=== PATIENT | male | born 1965 ===

== ENCOUNTER → 2020-08-18 10:46 | Outpatient (BNVA) | payer OTHER, SELFPAY | PROVIDERS: PCP Internal Medicine; Visit Provider Urology | DX: Z76.89 Persons encountering health services in other specified circumstances (principal) ==

== ENCOUNTER → 2020-08-21 09:57 | Outpatient (BNVA) | payer OTHER, SELFPAY | PROVIDERS: PCP Internal Medicine; Visit Provider Urology | DX: Z76.89 Persons encountering health services in other specified circumstances (principal) ==

== ENCOUNTER → 2020-08-26 15:37 | Outpatient (BNVA) | payer OTHER, SELFPAY | PROVIDERS: PCP Internal Medicine; Visit Provider Urology | DX: N20.0 Calculus of kidney (principal) | CPT/HCPCS: 81002 ==

== ENCOUNTER 2020-08-31 07:17 | Day surgery (SDC) | payer OTHER, SELFPAY ==
[2020-08-31] VITALS (15 sets, daily range): BP systolic 143–167; BP diastolic 92–108; PULSE 91–103; RESP 16–20; TEMP 36.1–36.3; O2SAT 94–100; BMI 29.4
--- NOTE | 2020-08-31 07:13 | FL_ITS ---
EXAMINATION: XR FLUOROSCOPY WITH IMAGES CLINICAL INFORMATION: Stent placement COMPARISON: Previous exam November 2016 TECHNIQUE: Fluoroscopy performed by Dr. Efra Waite. Fluoroscopy time: 1 minutes DAP: 18 mGy Images: 5 FINDINGS: Initial image demonstrates opacification of the right renal collecting system and proximal ureter and right internal ureteral stent placement. Final image demonstrates left internal ureteral stent projecting over the left kidney and upper ureter. FL/FL guidance in OR IMPRESSION: Fluoroscopy guidance for bilateral ureteral stent placement.
[2020-08-31] MEDS: levoFLOXacin 500 MG TABLET PO (08:39)
[2020-08-31] MEDS: Gentamicin Sulfate/NaCl 80 MG/100 ML PIGGYBACK 100 MG IV (08:39)
--- NOTE | 2020-08-31 09:57 | P.CONAN_ITS ---
[facility] Family History Family History Father CVD (cardiovascular disease) Mother No problems noted. Surgical History Surgical History History of cystoscopy History of lithotripsy Social History Social History Smoking Status: Never smoker Have you been hit, kicked, punched, or otherwise hurt by someone within the past year? If so, by whom?: No Advance Directives: No Advance Directives Information Provided: No (unknown) Advance Directives on File: No Meds Allergies Allergy/AdvReac Type Severity Reaction Status Date / Time Penicillins Allergy Rash Verified 07/24/20 15:33 Home Medications Medication Instructions Recorded Confirmed Type allopurinol 100 mg tablet 100 mg PO DAILY 07/21/20 08/26/20 History alprazolam 0.25 mg tablet 0.25 mg PO TID 07/21/20 08/26/20 History doxazosin 8 mg tablet 8 mg PO DAILY 07/21/20 08/26/20 History escitalopram oxalate 20 mg tablet 20 mg PO DAILY 07/21/20 08/26/20 History lamotrigine 100 mg tablet 100 mg PO DAILY 07/21/20 08/26/20 History nortriptyline 50 mg capsule 50 mg PO DAILY 07/21/20 08/26/20 History oxycodone-acetaminophen 5 mg-325 1 tab PO Q8H PRN 07/21/20 08/26/20 History mg tablet pyridoxine (vitamin B6) 50 mg 50 mg PO DAILY 07/21/20 08/26/20 History tablet tamsulosin 0.4 mg capsule 0.4 mg PO DAILY 07/21/20 08/26/20 History buspirone 1 tab PO TID 08/31/20 08/31/20 History Exam Exam Date and Time: August 31, 2020956 Height,Weight and Vital Signs: Height 5 ft 7 in Weight 85.275 kg Last Vital Signs Temp 97 F 08/31/20 08:26 Pulse 98 08/31/20 08:26 Resp 18 08/31/20 08:26 BP 158/96 H 08/31/20 08:26 Pulse Ox 100 08/31/20 08:26 Airway Mallampati Class: II TM Dist: >3cm Neck ROM: Full Assessment and Plan Assessment Anesthesia Assessment: Anesthesia Plan Discussed and Chart Reviewed Final Anesthetic Review NPO: Yes ASA Class: II Final Preanesthetic Review: No Changes in Pt Med Stat, Meds/Allgs Chart Reviewed, Consent Obtained/Reviewed and Anes Risks/Benef Reviewed Patient Risk: Low Procedure Risk: Low Assessment/Block/Sedation in SS: Assess/Block/Sedation-SS Anesthetic Plan Anesthetic Plan: GA Disposition: Standard PACU
--- NOTE | 2020-08-31 12:01 | PM.OP ---
Brief Operative Note Date of procedure: 08/31/20 Pre-op diagnosis: bilateral renal nephrolithiasis Post-op diagnosis: same Procedure: 1. right retrograde 2. dilatation right ureteric orifice under fluoroscopy 3. right ureteroscopy with laser lithotripsy 0 4 right stent placement 5. left retrograde 6. dilatation left ureteric orifice under fluoroscopy 7. left ureteroscopy with laser lithotripsy 8. left stent placement Implants: bilateral 7 [place] 24 cm double-J ureteric catheter Surgeon: Efra Waite MD Anesthesia: GLMA Estimated blood loss (mL): 0 Pathology: other ( stones) Condition: stable Disposition: same day
--- NOTE | 2020-08-31 12:05 | W.PM.OPN ---
Operative Note Operative Note Narrative: PreOperative Diagnosis: bilateral renal nephrolithiasis Post Operative Diagnosis: bilateral renal nephrolithiasis left staghorn with significant stone Procedure: 1. Bilateral retrogrades 2. bilateral dilatation distal ureteric orifice under fluoroscopy 3. bilateral ureteroscopy with laser lithotripsy of stones. Modifier 22 on right side prolonged greater than 100% typical time 4. bilateral stent placement Surgeon: Dr Efra Waite Anesthesia: general Indications for procedure: 54-year-old male. Bilateral stones. 2.5 cm stone on the right lower pole. 1 cm stone on the left pole. Discussed PCNL versus ESWL versus ureteroscopy. Is willing to undergo ureteroscopy. Understands this may be a staged procedure in secondary procedures will be needed necessary depending on postprocedure findings. Procedure: After informed consent was verified patient was brought to the operating room placed in a supine position. Anesthesia was administered per protocol. Patient was placed in modified dorsal lithotomy position and prepped and draped in sterile fashion. Safety pause time-out was performed. Antibiotics have been given. Twenty-one Prydeinig cystoscope inserted per urethra. He does have a large prostate. Ureter noted on right side. This was cannulated and retrograde examination performed. Filling defect in lower pole. Sensor guidewire placed to the level of renal pelvis. cystoscope removed. The distal ureteric orifice was dilated under fluoroscopic guidance. Ureteric access sheath was placed. Flexible ureteroscope was then placed up to the level renal pelvis. The renal pelvis was examined. There was a number of findings on the right side. 1. staghorn lower pole calculus in 2 posterior calyx. 2. due to prior procedures that was an excluded calyx containing a large number of stones. Using the 200 micron laser fiber approximately 1 hour spent in case with stone try to break this into small pieces. Approximately 50% was able to be broken. The other piece was not accessible to the flexible ureteral scope. Once this was complete mass since ago by was placed. The sheath was removed and a 7 Prydeinig by 24 cm stent was placed. Similar procedure was repeated on the left side. Retrograde was performed. Access sheath was placed. Flexible ureteroscopy was performed. Two stones were found 1 in the upper pole 1 in the lower pole. In this occasion both were accessible to the flexible ureteroscope and stones were broken into small pieces with stone box cutting. When this was completed a Sensor guidewire was placed. And a 7 Prydeinig by 24 cm stent was placed. He tolerated procedure well was extubated in operating room and transferred in stable condition to the recovery area. Pathology: Stones Drains: Bilateral 7 Prydeinig by 24 cm double-J ureteric catheters
[2020-08-31] MEDS: fentaNYL citrate/PF 100 MCG/2 ML VIAL 50 MCG IVPUSH (12:35)
[2020-08-31] MEDS: ondansetron HCL 4 MG/2 ML VIAL IVPUSH (12:48)
[2020-08-31] MEDS: Phenazopyridine HCL 100 MG TABLET PO (13:18)
[2020-08-31] MEDS: Acetaminophen 325 MG TABLET 650 MG PO (14:20)
[2020-08-31] MEDS: oxyCODONE HCl Immed Release 5 MG TABLET PO (14:21)
[2020-09-03 23:41] LABS: Stone Source KIDNEY STONE
== END 2020-08-31 16:14 | disposition home or self-care (01) ==
PROVIDERS: PCP Internal Medicine; Visit Provider Urology
PROC: (CPT 52356; principal; 2020-08-31 09:00)
DX: N20.0 Calculus of kidney (principal); Z87.442 Personal history of urinary calculi; Z79.899 Other long term (current) drug therapy; Z88.0 Allergy status to penicillin
CPT/HCPCS: 52356; 82365; 88300; C1769; C2617; J1100; J1580; J1885; J2405; J3010; Q9967

== ENCOUNTER → 2020-09-10 15:01 | Outpatient (BNVA) | payer OTHER, SELFPAY | PROVIDERS: PCP Internal Medicine; Visit Provider Urology | DX: Z48.816 Encounter for surgical aftercare following surgery on the genitourinary system (principal); Z96.0 Presence of urogenital implants; Z87.442 Personal history of urinary calculi | CPT/HCPCS: 52000; 52310 ==

== ENCOUNTER → 2020-11-18 10:16 | Outpatient (BNVA) | payer OTHER, SELFPAY | PROVIDERS: PCP Internal Medicine; Visit Provider Urology | DX: Z76.89 Persons encountering health services in other specified circumstances (principal) ==

== ENCOUNTER → 2021-05-25 08:19 | Outpatient (BNVA) | payer OTHER, SELFPAY | PROVIDERS: PCP Internal Medicine; Visit Provider Urology ==

== ENCOUNTER → 2021-11-23 11:01 | Outpatient (BNVA) | payer OTHER, SELFPAY | PROVIDERS: PCP Internal Medicine; Visit Provider Urology ==

== ENCOUNTER 2022-06-10 09:48 | Outpatient (AMB) | payer OTHER, SELFPAY ==
--- NOTE | 2022-06-09 12:07 | A.OFFVIS_ITS ---
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 He is a patient of Dr. Willis. He is seen for following urologic conditions - nephrolithiasis Telemedicine Evaluation 15 min Consultation Doxim[employer] [place] Video attempted Reviewed imaging findings Encouraged fluid intake with lemon, vitamin-B and allopurinol Review in 6 months with imaging Nephrolithiasis/Urolithiasis: They are here for further evaluation of nephrolithiasis. They present for evaluation of back pain none flank pain none abdominal pain none Urolithiasis was diagnosed Many years . The patient previously had kidney stones whose composition 2015 , calcium oxalate - dihydrate 95%, - 2020 calcium oxalate dihydrate Laboratory investigations include no recent labs. 24 Hour urine evaluation 11/08 , Low Urin e volume < 2.0 liters, High oxalate > 30mg, Low calcium < 200, High Citrate - discussion - increase fluid volume by 32 ounces. Discussed oxalate restriction. Add Citracal with evening meal 05/08 , Low Urine volume < 2.0 liters, Joseph borderline, , Low Oxalate < 30, Low citrate < 400 - discussed add 16 oz water, lemon juice vs cit-K, Vit B6 and allopurinol 06/09 , Low Urine volume < 2.0 liters, High oxalate > 30mg, Low calcium < 200, High Citrate - oxalate advice given 07/11 low volume, high oxalate. Prior treatment(s) include ESWL 1994, 1996, and October 2006 - left side, July 2012. PCNL right side August 2007 - 12/09 - left USR and ureteric stone. - 09/11 bilateral USR with stones Prior imaging includes an x-ray May 2015. Multifocal right lower pole nephrolithiasis measuring up to 2.2 cm Prostatic calcification. Stable stones March 2016 - , a KUB x-ray, showing radiodense stone(s), on the right, 5- 10 mm Jun 2016 , a CT multiple stones in the right lower pole, multiple stones in left lower pole - new Sep 2016 , a renal ultrasound bilateral stones - notice more in right than left - multiple small stones December 2016 , a KUB x-ray - less stones on the left, still present on right 06/09 , a KUB x-ray stones on right - 07/12 KUB - right cluster 2.5cm, left 1.5cm - 11/12 KUB right cluster 1 cm, left 0.5 - 75% reduction in stone volume bilateral 06/12 - renal ultrasound reports 3 - 4 mm stones on right and 1.2 cm stone on left - 11/13 KUB with right cluster 1 cm, no stone reported on left UA today shows >7.0. Current therapeutic plan will be - continue imaging surveillance [facility] Surgical History History of lithotripsy History of cystoscopy Family History Father CVD (cardiovascular disease) Mother No problems noted. Social History Patient Tobacco Use Status: Former Tobacco user Quit Date: 20 years ago Review of Systems Const All systems reviewed & are unremarkable except as noted in HPI and below Reports no additional complaints Resp Reports no additional complaints GI Reports no additional complaints Reports as per HPI Musc Reports no additional complaints Physical Exam Telemedicine evaluation Appropriate responses Regular breathing rate and rhythm HEENT Head: Yes normal to inspection Ears: hearing grossly normal bilaterally Eyes General: appearance normal, both eyes and all related structures Neck Neck: Yes normal visual inspection Chest Chest palpation & inspection: normal inspection of the chest Resp Effort & Inspection: normal respiratory effort and able to speak in complete sentences Assessment & Plan Assessment & Plan (1) Nephrolithiasis: Code(s): N20.0 - Calculus of kidney (2) Complicated urinary tract infection: Code(s): N39.0 - Urinary tract infection, site not specified Plan Continue surveillance Orders: Orders XR KUB 6 Months N20.0 - Calculus of kidney Medications: New prednisone 20 mg PO DAILY 3 tabs 0RF 3 days N20.0 - Calculus of kidney, 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 No major barriers to patient understanding were identified. An opportunity to ask questions regarding the treatment plan was provided. All questions were answered. The patient expressed understanding and agreement with the above treatment plan. The patient is aware they should contact our office by phone for worsening of their current condition or the appearance of new urologic symptoms. Compliance is encouraged with any medications and followup testing that is ordered. It is a privilege to participate in the urologic care of your patient. If you have any questions or concerns regarding treatment for the above conditions, or other urologic issues, please do not hesitate to contact me. The office telephone contact is [phone]. This note is constructed using voice recognition software. While every effort has been made to ensure accuracy service station operator errors may have been included. Yours sincerely, Dr Efra Waite MD, [facility] - Urology Providers of Expert, Compassionate Care for the Genitourinary System Telehealth Telehealth Location of provider rendering services: practice address Location of patient: address on file Patient Identification confirmed using: Name, : Yes Telehealth method: video Patient verbally consented to treatment: Yes Patient verbally consented to billing insurance company: Yes Patient informed of any privacy concerns related to visit: Yes Coding Level of Care Code Tele Est Pt Level 3 (70690) Diagnoses Nephrolithiasis N20.0 Complicated urinary tract infection N39.0
== END 2022-06-10 11:56 | disposition home or self-care (01) ==
LOC: HO.HUSH 09:48
PROVIDERS: PCP Internal Medicine; Visit Provider Urology
DX: N20.0 Calculus of kidney (principal); N39.0 Urinary tract infection, site not specified
CPT/HCPCS: 99499

== ENCOUNTER 2022-09-26 05:48 | Day surgery (SDC) | payer OTHER, SELFPAY ==
--- NOTE | 2022-09-23 09:32 | HO.ANESPROP2 ---
Documented by User: Cinthya Rowe NP 09/23/22 09:33 HPI - Anesthesia Eval Consult details Narrative: 56yo M for Left Cystoscopy, Ureteroroscopy, Retro, Laser,poss stent s/p same with GA-LMA 4 PMFSH Active Problems Active Problems: All Active Problems (Updated 08/21/20 @ 16:17 by Efra Waite MD) Nephrolithiasis (Acute) Complicated urinary tract infection (Acute) Family History Family History Father CVD (cardiovascular disease) Mother No problems noted. Surgical History Surgical History History of cystoscopy History of lithotripsy Social History Social History Patient Tobacco Use Status: Former Tobacco user Quit Date: 20 years ago Use of substances other than those prescribed or required for medical reasons: No Are you DNR?: No Advance Directives: No Advance Directives Information Provided: Yes Meds Allergies Allergy/AdvReac Type Severity Reaction Status Date / Time Penicillins Allergy Rash Verified 06/09/22 12:08 Home Medications Medication Instructions Recorded Confirmed Last Taken Type allopurinol 100 mg tablet 100 mg PO DAILY 07/21/20 08/26/20 Unknown History alprazolam 0.25 mg tablet (Xanax) 0.25 mg PO TID 07/21/20 08/26/20 Unknown History escitalopram oxalate 20 mg tablet 20 mg PO DAILY 07/21/20 08/26/20 08/31/20 History (Lexapro) lamotrigine 100 mg tablet 100 mg PO DAILY 07/21/20 08/26/20 Unknown History (Lamictal) nortriptyline 50 mg capsule 50 mg PO DAILY 07/21/20 08/26/20 Unknown History buspirone 5 mg tablet 1 tab PO TID 08/31/20 08/31/20 08/31/20 History lamotrigine 150 mg tablet 150 mg PO DAILY 05/25/21 Unknown History Exam Exam Date and Time: September 23, 2022 0932 Assessment and Plan Assessment Anesthesia Assessment: Chart Reviewed Documented by User: Saida Currie MD 09/26/22 07:30 [facility] Family History Family History Father CVD (cardiovascular disease) Mother No problems noted. Family history of problems with anesthesia: No Surgical History Surgical History History of cystoscopy History of lithotripsy History of Problems with Anesthesia: No Social History Social History Patient Tobacco Use Status: Former Tobacco user Quit Date: 20 years ago Use of substances other than those prescribed or required for medical reasons: No Are you DNR?: No Advance Directives: No Advance Directives Information Provided: Yes Meds Allergies Allergy/AdvReac Type Severity Reaction Status Date / Time Penicillins Allergy Rash Verified 06/09/22 12:08 Home Medications Medication Instructions Recorded Confirmed Last Taken Type allopurinol 100 mg tablet 100 mg PO DAILY 07/21/20 08/26/20 Unknown History alprazolam 0.25 mg tablet (Xanax) 0.25 mg PO TID 07/21/20 08/26/20 Unknown History escitalopram oxalate 20 mg tablet 20 mg PO DAILY 07/21/20 08/26/20 08/31/20 History (Lexapro) lamotrigine 100 mg tablet 100 mg PO DAILY 07/21/20 08/26/20 Unknown History (Lamictal) nortriptyline 50 mg capsule 50 mg PO DAILY 07/21/20 08/26/20 Unknown History buspirone 5 mg tablet 1 tab PO TID 08/31/20 08/31/20 08/31/20 History lamotrigine 150 mg tablet 150 mg PO DAILY 05/25/21 Unknown History Exam Airway Mallampati Class: II TM Dist: >3cm Neck ROM: Full Loose/Missing/Broken Teeth: No Heart: rrr Lungs: cta Assessment and Plan Assessment Anesthesia Assessment: Anesthesia Plan Discussed Final Anesthetic Review Family History of Problems with Anesthesia: No History of Problems with Anesthesia: No NPO: Yes ASA Class: II Final Preanesthetic Review: No Changes in Pt Med Stat Patient Risk: Low Procedure Risk: Low Anesthetic Plan Anesthetic Plan: GA Disposition: Standard PACU
--- NOTE | ~2022-09-26 | FL_ITS ---
EXAMINATION: XR FLUOROSCOPY WITH IMAGES CLINICAL INFORMATION: Urinary tract calculi COMPARISON: Fluoroscopic spot views 08/31/2020 TECHNIQUE: Fluoroscopy Supervised By: Dr. Efra Waite. Fluoroscopy Time: 34 seconds. Cumulative Dose: 11.82 mGy. Images: 3. FINDINGS: On one spot view, there is contrast in the mid to lower left ureter. The opacified area shows no filling defect or stricture. The final images demonstrate a left ureteral stent in position. There is probable calcifications in the prostate. FL/FL guidance in OR IMPRESSION: Fluoroscopy for urologic procedures.
[2022-09-26 06:21] VITALS: BP 144/87; PULSE 90; RESP 18; TEMP 36.2; O2SAT 99; BMI 29.0
[2022-09-26 06:30] VITALS: BMI 29.0
[2022-09-26] MEDS: Lactated Ringers 1,000 ML 100 ML IVCONT (06:40)
--- NOTE | 2022-09-26 07:37 | MHC.SHP ---
Pre-Procedural Eval Section A Date of Service: 09/26/22 The patient is an INPATIENT: No Changes since office visit: No Cold of Flu in the past 2 weeks, No New Medical Problems, No Changes in Medication and No Patient answered all questions The History & Physical has been completed within 30 days and I have reviewed it.: No Section B Chief Complaint: Calculus of kidney Details of Present Illness: Recurrent pain left side Long standing stone former Imaging with left stone Plan for left sided procedure Relevant Family History (Specify if Yes): No Relevant Social History: None Present Medications: see Short Stay Collaborative assessment Medical History: Significant History History of Previous Operations: Relevant previous surgery/procedure and date(s) Allergies: Allergies Allergy/AdvReac Type Severity Reaction Status Date / Time Penicillins Allergy Rash Verified 06/09/22 12:08 Review of Systems Sugical H&P ROS: Negative: Constitution, Cardiovascular, Respiratory, Neurological, Psychiatric, Hem-Onc, Allergic/Immunologic, Gastrointestinal, Genitourinary, Musculoskeletal, Integumentary, Endocrine and Eyes/Ears/Nose/Throat Exam Surgical H&P Exam: Normal: HEENT, Normal: Heart, Normal: Lungs, Normal: Extremities, Normal: Abdomen, Normal: Skin and Normal: Neurological Plan Diagnosis/Plan: Unchanged (Cysto, retro, USR, laser, stent) I have reviewed the history and physical and performed a pertinent physical examination on my patient. No changes have occurred unless specified.
[2022-09-26 08:30] VITALS: BP 130/80; PULSE 92; RESP 18; TEMP 36.8; O2SAT 96
[2022-09-26 08:35] VITALS: BP 134/85; PULSE 86; RESP 16; O2SAT 96
--- NOTE | 2022-09-26 08:36 | P.OP_ITS ---
Operative Note Operative Note Date of Service: 09/26/22 Narrative: PreOperative Diagnosis: left mid ureteric stone Post Operative Diagnosis: bladder stones, left mid ureteric stone Procedure: - cystoscopy, laser of bladder stone - left retrograde - left dilatation of ureteric orifice under fluoroscopy - left ureteroscopy, laser lithotripsy - left stent placement Surgeon: Dr Efra Waite Anesthesia: General Indications for procedure: pain on left side. Prior kidney stone former. KUB showed stone on right kidney but did not visualize anything on left kidney. Due to persistence and recurrence of symptoms recommend ureteroscopy on left side. Procedure: After informed consent was verified patient was brought to the operating placed in supine position. Anesthesia was administered per protocol. Patient was placed in modified dorsal lithotomy position and prepped and draped in a sterile fashion. Safety pause time-out and side of surgery confirmed. Antibiotics confirmed. A 22 Citizen [place] cystoscope was inserted per urethra. Bladder was normal in its entirety. Both ureteric orifices were in normal position. Two bladder stones were found within the bladder. First bladder stone was able to be easily removed through the cystoscope. The 2nd bladder stone was broken into small pieces using the 372 micron holmium fiber and stone settings. The Left ureteric orifice was cannulated and a retrograde examination was performed. filling defect was present in the mid left ureter . A Sensor guidewire was placed up to the level of the renal pelvis under fluoroscopy. The rigid cystoscope was removed. A [place] dilator was placed over the Sensor guidewire and used to dilate the ureteric orifice under fluoroscopy. The dilator was removed. The semi rigid ureteral scope was placed alongside the Sensor guidewire. An obstructing stone was found in the mid left ureter. Using the same holmium laser fiber the stone was broken into small pieces and dispersed. The proximal ureter was then examined up to the level renal pelvis. No further stones were seen. The area where the stone was present had edema with some degree of narrowing. Due to the edema decision was made to place stent. A 6 [place] by 26 cm double-J stent was placed into the renal pelvis and bladder under a combination of fluoroscopy and direct visualization. The string was left on the posterior of the stent to allow removal as outpatient The bladder was emptied. The patient tolerated the procedure well and was extubated in the operating room, and transferred in stable condition to the recovery area. Pathology: stones Drains: stent as described above
[2022-09-26 08:40] VITALS: BP 124/88; PULSE 94; RESP 16; O2SAT 96
[2022-09-26 08:45] VITALS: BP 134/90; PULSE 87; RESP 16; O2SAT 99
[2022-09-26] MEDS: Acetaminophen 325 MG TABLET 650 MG PO (08:55)
[2022-09-26] MEDS: Phenazopyridine HCL 100 MG TABLET PO (08:56)
[2022-09-26 09:00] VITALS: BP 140/92; PULSE 88; RESP 16; TEMP 36.3; O2SAT 99
== END 2022-09-26 09:53 | disposition home or self-care (01) ==
PROVIDERS: PCP Internal Medicine; Visit Provider Urology
PROC: (CPT 52356; principal; 2022-09-26 07:30)
DX: N21.0 Calculus in bladder (principal); N20.1 Calculus of ureter; Z87.442 Personal history of urinary calculi; Z88.0 Allergy status to penicillin; Z87.891 Personal history of nicotine dependence
CPT/HCPCS: 52356; 52317; 88300; C1758; C1769; C2617; J1956; J2250; J2405; J3010; Q9967

== ENCOUNTER → 2022-12-16 08:37 | Outpatient (BNVA) | payer OTHER, SELFPAY | PROVIDERS: PCP Internal Medicine; Visit Provider Urology | DX: Z13.89 Encounter for screening for other disorder (principal) ==

== ENCOUNTER 2023-09-01 13:57 | Outpatient (AMB) | payer OTHER, SELFPAY ==
--- NOTE | 2023-09-01 14:03 | MHC.OFFVIS ---
Intake Intake Visit Reasons: 6m follow up/XR-KUB(set) Intake Note: Patient is Present for Follow Up xray Urology Medication: Doxazosin, Vitamin B6, Tamsulosin Antibiotic Allergies: Penicillins Blood Thinners: Penicillins Allergies Penicillins Allergy (Verified 09/01/23 14:07) Rash Medication List - Last Reconciled 09/01/23 by Efra Waite MD allopurinol 100 mg PO DAILY 90 days alprazolam (Xanax) 0.25 mg PO TID buspirone 10 mg PO TID doxazosin 8 mg PO BEDTIME 90 days escitalopram oxalate (Lexapro) 20 mg PO DAILY lamotrigine 150 mg PO DAILY naproxen 500 mg PO BID PRN 7 days nortriptyline 50 mg PO DAILY pyridoxine (vitamin B6) (Vitamin B-6) 50 mg PO DAILY 90 days HPI HPI Comments History of Present Illness Details Raghu is a very pleasant male. He is a patient of Dr. Willis. He is seen for following urologic conditions - nephrolithiasis Six month review Imaging with persistent stone cluster right side Reviewed imaging findings Encouraged fluid intake with lemon, vitamin-B 50mg Yearly follow-up Nephrolithiasis/Urolithiasis: They are here for further evaluation of nephrolithiasis. Urolithiasis was diagnosed Many years . The patient previously had kidney stones whose composition w 2015 , calcium oxalate - dihydrate 95%, - 2020 calcium oxalate dihydrate - 2022 calcium dihydrate Laboratory investigations include no recent labs. 24 Hour urine evaluation 11/08 , Low Urine volume < 2.0 liters, High oxalate > 30mg, Low calcium < 200, High Citrate - discussion - increase fluid volume by 32 ounces. Discussed oxalate restriction. Add Citracal with evening meal 05/08 , Low Urine volume < 2.0 liters, Joseph borderline, , Low Oxalate < 30, Low citrate < 400 - discussed add 16 oz water, lemon juice vs cit-K, Vit B6 and allopurinol 06/09 , Low Urine volume < 2.0 liters, High oxalate > 30mg, Low calcium < 200, High Citrate - oxalate advice given 07/11 low volume, high oxalate. Prior treatment(s) include ESWL 1994, 1996, and October 2006 - left side, July 2012. PCNL right side August 2007 - 12/09 - left USR and ureteric stone. - 09/11 bilateral USR with stones - 10/13 USR right side Prior imaging includes an x-ray May 2015. Multifocal right lower pole nephrolithiasis measuring up to 2.2 cm Prostatic calcification. Stable stones March 2016 - , a KUB x-ray, showing radiodense stone(s), on the right, 5-10 mm Jun 2016 , a CT multiple stones in the right lower pole, multiple stones in left lower pole - new Sep 2016 , a renal ultrasound bilateral stones - notice more in right than left - multiple small stones December 2016 , a KUB x-ray - less stones on the left, still present on right 06/09 , a KUB x-ray stones on right - 07/12 KUB - right cluster 2.5cm, left 1.5cm - 11/12 KUB right cluster 1 cm, left 0.5 - 75% reduction in stone volume bilateral 06/12 - renal ultrasound reports 3 - 4 mm stones on right and 1.2 cm stone on left - 11/13 KUB with right cluster 1 cm, no stone reported on left, 12/15 US with right cluster of stones, left cyst - 08/14 kv with persistent right stone cluster small UA today shows >7.0. Current therapeutic plan will be - continue imaging surveillance [facility] Surgical History History of lithotripsy History of cystoscopy Family History Father CVD (cardiovascular disease) Mother No problems noted. Social History Patient Tobacco Use Status: Former Tobacco user Quit Date: 20 years ago Review of Systems Const Denies chills and Denies fever(s) Card Reports no additional complaints and Denies syncope Resp Denies cough GI Denies abdominal pain and Denies heartburn Reports as per HPI and Denies change in libido Neuro Denies syncope Psych Denies change in libido Endo Denies change in libido Physical Exam Const General: cooperative, healthy appearing, comfortable and no acute distress Orientation/consciousness: patient oriented x3 HEENT Face and sinus: Yes normal facial exam Mouth: moist mucous membranes Neck Neck: Yes normal visual inspection, Yes full ROM and Yes trachea midline Chest Chest palpation & inspection: normal inspection of the chest Resp Effort & Inspection: normal respiratory effort, able to speak in complete sentences and no respiratory distress GI Inspection: Yes normal to inspection Back/Spine/Pelvis Cervical Spine: normal cervical lordosis Thoracic/Lumbar Spine: thoracic and lumbar spine normal to inspection Skin General skin exam: no rashes or lesions noted Neuro General: patient oriented x3, gait normal, tone normal and moves all extremities Extrem General: Yes normal to inspection and Yes capillary refill normal Assessment & Plan Assessment & Plan (1) Nephrolithiasis: Code(s): N20.0 - Calculus of kidney (2) Complicated urinary tract infection: Code(s): N39.0 - Urinary tract infection, site not specified Plan Twelve month follow-up Orders: Orders US renal BI 364 Days N20.0 - Calculus of kidney Patient Instructions: Imaging studies, laboratory and physical exam results were discussed and reviewed in detail. No major barriers to patient understanding were identified. An opportunity to ask questions regarding the treatment plan was provided. All questions were answered. The patient expressed understanding and agreement with the above treatment plan. The patient is aware they should contact our office by phone for worsening of their current condition or the appearance of new urologic symptoms. Compliance is encouraged with any medications and followup testing that is ordered. It is a privilege to participate in the urologic care of your patient. If you have any questions or concerns regarding treatment for the above conditions, or other urologic issues, please do not hesitate to contact me. The office telephone contact is [phone]. This note is constructed using voice recognition software. While every effort has been made to ensure accuracy assembler corncob pipes errors may have been included. Yours sincerely, Dr Efra Waite MD, [facility] - Urology Providers of Expert, Compassionate Care for the Genitourinary System Coding Level of Care Code Est Pt Level 3 (01829) Diagnoses Nephrolithiasis N20.0 Complicated urinary tract infection N39.0
== END 2023-09-01 14:26 | disposition home or self-care (01) ==
PROVIDERS: Visit Provider Urology
DX: N20.0 Calculus of kidney (principal); N39.0 Urinary tract infection, site not specified
CPT/HCPCS: 99213

== ENCOUNTER → 2023-09-01 13:57 | Outpatient (BNVA) | payer OTHER, SELFPAY | PROVIDERS: Visit Provider Urology ==

== ENCOUNTER 2024-09-05 11:00 | Outpatient (AMB) | payer OTHER, SELFPAY ==
--- NOTE | 2024-09-05 11:03 | A.OFFVIS_ITS ---
Intake Visit Reasons: ALS diagnosis/follow up Intake Note: Patient is present for ALS DIAGNOSIS F/U Urology Medication:ALLOPURINOL,DOXAZOSIN,VITAMIN B6,NAPROXEN Antibiotic Allergy:PENICILLIN Blood Thinner:NONE Director Post Required: No Allergies Penicillins Allergy (Verified 09/05/24 11:05) Rash HPI Comments Details: Raghu is a very pleasant male. He is a patient of Dr. Willis. He is seen for following urologic conditions - nephrolithiasis - lower urinary tract symptoms Progressive ALS over past year Accompanied by brother Here for discussion regarding urinary management Plan on trying to optimize alpha-faizan May need Palma catheter He may call in 2 weeks to schedule nurse Palma catheter placement Nephrolithiasis/Urolithiasis: They are here for further evaluation of nephrolithiasis. Urolithiasis was diagnosed Many years . The patient previously had kidney stones whose composition 2015 , calcium oxalate - dihydrate 95%, - 2020 calcium oxalate dihydrate - 2022 calcium dihydrate Laboratory investigations include no recent labs. 24 Hour urine evaluation 11/08 , Low Urine volume < 2.0 liters, High oxalate > 30mg, Low calcium < 200, High Citrate - discussion - increase fluid volume by 32 ounces. Discussed oxalate restriction. Add Citracal with evening meal 05/08 , Low Urine volume < 2.0 liters, Joseph borderline, , Low Oxalate < 30, Low citrate < 400 - discussed add 16 oz water, lemon juice vs cit-K, Vit B6 and allopurinol 06/09 , Low Urine volume < 2.0 liters, High oxalate > 30mg, Low calcium < 200, High Citrate - oxalate advice given 07/11 low volume, high oxalate. Prior treatment(s) include ESWL 1994, 1996, and October 2006 - left side, July 2012. PCNL right side August 2007 - 12/09 - left USR and ureteric stone. - 09/11 bilateral USR with stones - 10/13 USR right side Prior imaging includes an x-ray May 2015. Multifocal right lower pole nephrolithiasis measuring up to 2.2 cm Prostatic calcification. Stable stones March 2016 - , a KUB x-ray, showing radiodense stone(s), on the right, 5- 10 mm Jun 2016 , a CT multiple stones in the right lower pole, multiple stones in left lower pole - new Sep 2016 , a renal ultrasound bilateral stones - notice more in right than left - multiple small stones December 2016 , a KUB x-ray - less stones on the left, still present on right 06/09 , a KUB x-ray stones on right - 07/12 KUB - right cluster 2.5cm, left 1.5cm - 11/12 KUB right cluster 1 cm, left 0.5 - 75% reduction in stone volume bilateral 06/12 - renal ultrasound reports 3 - 4 mm stones on right and 1.2 cm stone on left - 11/13 KUB with right cluster 1 cm, no stone reported on left, 12/15 US with right cluster of stones, left cyst - 08/14 kv with persistent right stone cluster small UA today shows >7.0. Current therapeutic plan will be - continue imaging surveillance [facility] Surgical History History of lithotripsy History of cystoscopy Family History Father CVD (cardiovascular disease) Mother No problems noted. Social History Patient Tobacco Use Status: Former Tobacco user Review of Systems Const Denies chills and Denies fever(s) Card Reports no additional complaints and Denies syncope Resp Denies cough GI Denies abdominal pain and Denies heartburn Reports as per HPI and Denies change in libido Neuro Denies syncope Psych Denies change in libido Endo Denies change in libido Physical Exam Const General: cooperative, healthy appearing, comfortable and no acute distress Orientation/consciousness: patient oriented x3 HEENT Face and sinus: Yes normal facial exam Mouth: moist mucous membranes Neck Neck: Yes normal visual inspection, Yes full ROM and Yes trachea midline Chest Chest palpation & inspection: normal inspection of the chest Resp Effort & Inspection: normal respiratory effort, able to speak in complete sentences and no respiratory distress GI Inspection: Yes normal to inspection Back/Spine/Pelvis Cervical Spine: normal cervical lordosis Thoracic/Lumbar Spine: thoracic and lumbar spine normal to inspection Skin General skin exam: no rashes or lesions noted Neuro General: patient oriented x3, gait normal, tone normal and moves all extremities Extrem General: Yes normal to inspection and Yes capillary refill normal Results AMB Urinalysis, Automated UA Leukoctes 500 Cesar/uL Last Edit by EV Edwards on 09/05/24 11:24 UA Nitrite Negative Last Edit by EV Edwards on 09/05/24 11:24 UA Urobilinogen 0.2 mg/dL Last Edit by Theresa Jaeger CCM on 09/05/24 11:2 4 UA Protein 15 mg/dL Last Edit by EV Edwards on 09/05/24 11:24 UA pH 6.5 Last Edit by Theresa Jaeger [facility] on 09/05/24 11:24 UA Blood 25 Harsh/uL Last Edit by Theresa Jaeger [facility] on 09/05/24 11:24 UA Specific [place] 1.010 Last Edit by EV Edwards on 09/05/24 11: 24 UA Ketone Negative Last Edit by Theresa Jaeger CCM on 09/05/24 11:24 UA Bilirubin 0 mg/dL Last Edit by EV Edwards on 09/05/24 11:24 UA Glucose 0 mg/dL Last Edit by Theresa Jaeger [facility] on 09/05/24 11:24 Assessment & Plan Assessment & Plan (1) Urinary hesitancy: Code(s): R39.11 - Hesitancy of micturition Category: Medical Plan Trial alfuzosin Four week follow-up tele Orders: Orders AMB Urinalysis Automated Today Z13.9 - Encounter for screening, unspecified Patient Instructions: Imaging studies, laboratory and physical exam results were discussed and re viewed in detail. No major barriers to patient understanding were identified. An opportunity to ask questions regarding the treatment plan was provided. All questions were answered. The patient expressed understanding and agreement with the above treatment plan. The patient is aware they should contact our office by phone for worsening of their current condition or the appearance of new urologic symptoms. Compliance is encouraged with any medications and followup testing that is ordered. It is a privilege to participate in the urologic care of your patient. If you have any questions or concerns regarding treatment for the above conditions, or other urologic issues, please do not hesitate to contact me. The office telephone contact is [phone]. This note is constructed using voice recognition software. While every effort has been made to ensure accuracy manufactured buildings repairer errors may have been included. Yours sincerely, Dr Efra Waite MD, [facility] - Urology Providers of Expert, Compassionate Care for the Genitourinary System Coding Level of Care Code Est Pt Level 4 (08300) Diagnoses Urinary hesitancy R39.11
== END 2024-09-05 11:45 | disposition home or self-care (01) ==
PROVIDERS: PCP Internal Medicine; Visit Provider Urology
DX: Z13.9 Encounter for screening, unspecified (principal); R39.11 Hesitancy of micturition
CPT/HCPCS: 99214

== ENCOUNTER → 2024-09-05 11:00 | Outpatient (BNVA) | payer OTHER, SELFPAY | PROVIDERS: PCP Internal Medicine; Visit Provider Urology | DX: R39.11 Hesitancy of micturition (principal); G12.21 Amyotrophic lateral sclerosis | CPT/HCPCS: 81003 ==

== ENCOUNTER 2024-10-15 10:27 | Outpatient (AMB) | payer OTHER, SELFPAY ==
--- NOTE | 2024-10-15 10:27 | A.OFFVIS_ITS ---
Intake Visit Reasons: Finasteride Med discussion(Wants alt Med) Intake Note: Patient is present for FINASTERIDE MED DISCUSSION Urology Medication:ALLOPURINOL,DOXAZOSIN,VITAMIN B6,FINASTERIDE Antibiotic Allergy:PENICILLIN Blood Thinner:NONE [employer] Required: No Allergies Penicillins Allergy (Verified 10/15/24 10:28) Rash HPI Comments Details: Raghu is a very pleasant male. He is a patient of Dr. Willis. He is seen for following urologic conditions - nephrolithiasis - lower urinary tract symptoms Telemedicine Evaluation 15 min Consultation [employer] [place] Video Discussion regarding finasteride Has not seen a difference in the past 4 weeks Emphasized that may take a number of months Discussed trial of bethanechol Prescription provided Progressive ALS over past year Accompanied by spouse May need Palma catheter Nephrolithiasis/Urolithiasis: They are here for further evaluation of nephrolithiasis. Urolithiasis was diagnosed Many years . The patient previously had kidney stones whose composition 2015 , calcium oxalate - dihydrate 95%, - 2020 calcium oxalate dihydrate - 2022 calcium dihydrate Laboratory investigations include no recent labs. 24 Hour urine evaluation 11/08 , Low Urine volume < 2.0 liters, High oxalate > 30mg, Low calcium < 200, High Citrate - discussion - increase fluid volume by 32 ounces. Discussed oxalate restriction. Add Citracal with evening meal 05/08 , Low Urine volume < 2.0 liters, Joseph borderline, , Low Oxalate < 30, Low citrate < 400 - discussed add 16 oz water, lemon juice vs cit-K, Vit B6 and allopurinol 06/09 , Low Urine volume < 2.0 liters, High oxalate > 30mg, Low calcium < 200, High Citrate - oxalate advice given 07/11 low volume, high oxalate. Prior treatment(s) include ESWL 1994, 1996, and October 2006 - left side, July 2012. PCNL right side August 2007 - 12/09 - left USR and ureteric stone. - 09/11 bilateral USR with stones - 10/13 USR right side Prior imaging includes an x-ray May 2015. Multifocal right lower pole nephrolithiasis measuring up to 2.2 cm Prostatic calcification. Stable stones March 2016 - , a KUB x-ray, showing radiodense stone(s), on the right, 5- 10 mm Jun 2016 , a CT multiple stones in the right lower pole, multiple stones in left lower pole - new Sep 2016 , a renal ultrasound bilateral stones - notice more in right than left - multiple small stones December 2016 , a KUB x-ray - less stones on the left, still present on right 06/09 , a KUB x-ray stones on right - 07/12 KUB - right cluster 2.5cm, left 1.5cm - 11/12 KUB right cluster 1 cm, left 0.5 - 75% reduction in stone volume bilateral 06/12 - renal ultrasound reports 3 - 4 mm stones on right and 1.2 cm stone on left - 11/13 KUB with right cluster 1 cm, no stone reported on left, 12/15 US with right cluster of stones, left cyst - 08/14 kv with persistent right stone cluster small UA today shows >7.0. Current therapeutic plan will be - continue imaging surveillance [facility] Surgical History History of lithotripsy History of cystoscopy Family History Father CVD (cardiovascular disease) Mother No problems noted. Social History Patient Tobacco Use Status: Former Tobacco user Review of Systems Const All systems reviewed & are unremarkable except as noted in HPI and below Reports no additional complaints Resp Reports no additional complaints GI Reports no additional complaints Reports as per HPI Musc Reports no additional complaints Physical Exam Telemedicine evaluation Appropriate responses Regular breathing rate and rhythm HEENT Head: Yes normal to inspection Ears: hearing grossly normal bilaterally Eyes General: appearance normal, both eyes and all related structures Neck Neck: Yes normal visual inspection Chest Chest palpation & inspection: normal inspection of the chest Resp Effort & Inspection: normal respiratory effort and able to speak in complete sentences Telehealth Telehealth Location of provider rendering services: practice address Location of patient: address on file Patient Identification confirmed using: Name, : Yes Telehealth method: voice only Patient verbally consented to treatment: Yes Patient verbally consented to billing insurance company: Yes Patient informed of any privacy concerns related to visit: Yes Assessment & Plan Assessment & Plan (1) Urinary hesitancy: Code(s): R39.11 - Hesitancy of micturition Category: Medical (2) Complicated urinary tract infection: Code(s): N39.0 - Urinary tract infection, site not specified Category: Medical Plan Trial bethanechol Medications: New bethanechol chloride 50 mg PO BID 30 days 60 tabs 1RF N39.0 - Urinary tract infection, site not specified, R39.11 - Hesitancy of micturition Patient Instructions: Imaging studies, laboratory and physical exam results were discussed and reviewed in detail. No major barriers to patient understanding were identified. An opportunity to ask questions regarding the treatment plan was provided. All questions were answered. The patient expressed understanding and agreement with the above treatment plan. The patient is aware they should contact our office by phone for worsening of their current condition or the appearance of new urologic symptoms. Compliance is encouraged with any medications and followup testing that is ordered. It is a privilege to participate in the urologic care of your patient. If you have any questions or concerns regarding treatment for the above conditions, or other urologic issues, please do not hesitate to contact me. The office telephone contact is [phone]. This note is constructed using voice recognition software. While every effort has been made to ensure accuracy first aid trainer errors may have been included. Yours sincerely, Dr Efra Waite MD, [facility] - Urology Providers of Expert, Compassionate Care for the Genitourinary System Coding Level of Care Code Tele Est Pt Level 4 (04271) Diagnoses Urinary hesitancy R39.11 Complicated urinary tract infection N39.0
== END 2024-10-15 11:24 | disposition home or self-care (01) ==
LOC: HO.HUSH 10:27
PROVIDERS: PCP Internal Medicine; Visit Provider Urology
DX: R39.11 Hesitancy of micturition (principal); N39.0 Urinary tract infection, site not specified
CPT/HCPCS: 99442

== ENCOUNTER → 2024-11-07 13:26 | Outpatient (BNVA) | payer OTHER, SELFPAY | PROVIDERS: PCP Internal Medicine; Visit Provider Urology | DX: R33.9 Retention of urine, unspecified (principal); R39.11 Hesitancy of micturition | CPT/HCPCS: 51702 ==

== ENCOUNTER 2024-11-20 15:07 | Outpatient (AMB) | payer OTHER, MEDICARE, SELFPAY ==
--- NOTE | 2024-11-20 15:08 | A.OFFVIS_ITS ---
Intake Visit Reasons: 10 week f/u Intake Note: Patient is Present for Telephone Follow Up Urology Med: Bethanechol, Finasteride, Vitamins B6 Antibiotic Allergy: Penicillins Blood Thinner: None Sewer Connector Required: No Patent Agent: Patent Agent Present Accompanied by: Spouse Allergies Penicillins Allergy (Verified 11/20/24 15:09) Rash HPI Comments Details: Raghu is a very pleasant male. He is a patient of Dr. Willis. He is seen for following urologic conditions - nephrolithiasis - lower urinary tract symptoms Telemedicine Evaluation 15 min Consultation [employer] [facility] Video Now with Palma catheter This has been helpful Will start prostate medications. Stopped doxazosin, finasteride, bethanechol. Start vitamin-C and methenamine in order to minimize chance of urinary tract infection Has visiting nurse who will change catheter Nephrolithiasis/Urolithiasis: They are here for further evaluation of nephrolithiasis. Urolithiasis was diagnosed Many years . The patient previously had kidney stones whose composition 2015 , calcium oxalate - dihydrate 95%, - 2020 calcium oxalate dihydrate - 2022 calcium dihydrate Laboratory investigations include no recent labs. 24 Hour urine evaluation 11/08 , Low Urine volume < 2.0 liters, High oxalate > 30mg, Low calcium < 200, High Citrate - discussion - increase fluid volume by 32 ounces. Discussed oxalate restriction. Add Citracal with evening meal 05/08 , Low Urine volume < 2.0 liters, Joseph borderline, , Low Oxalate < 30, Low citrate < 400 - discussed add 16 oz water, lemon juice vs cit-K, Vit B6 and allopurinol 06/09 , Low Urine volume < 2.0 liters, High oxalate > 30mg, Low calcium < 200, High Citrate - oxalate advice given 07/11 low volume, high oxalate. Prior treatment(s) include ESWL 1994, 1996, and October 2006 - left side, July 2012. PCNL right side August 2007 - 12/09 - left USR and ureteric stone. - 09/11 bilateral USR with stones - 10/13 USR right side Prior imaging includes an x-ray May 2015. Multifocal right lower pole nephrolithiasis measuring up to 2.2 cm Prostatic calcification. Stable stones March 2016 - , a KUB x-ray, showing radiodense stone(s), on the right, 5- 10 mm Jun 2016 , a CT multiple stones in the right lower pole, multiple stones in left lower pole - new Sep 2016 , a renal ultrasound bilateral stones - notice more in right than left - multiple small stones December 2016 , a KUB x-ray - less stones on the left, still present on right 06/09 , a KUB x-ray stones on right - 07/12 KUB - right cluster 2.5cm, left 1.5cm - 11/12 KUB right cluster 1 cm, left 0.5 - 75% reduction in stone volume bilateral 06/12 - renal ultrasound reports 3 - 4 mm stones on right and 1.2 cm stone on left - 11/13 KUB with right cluster 1 cm, no stone reported on left, 12/15 US with right cluster of stones, left cyst - 08/14 kv with persistent right stone cluster small UA today shows >7.0. Current therapeutic plan will be - continue imaging surveillance [facility] Medical History Complicated urinary tract infection Surgical History History of lithotripsy History of cystoscopy Family History Father CVD (cardiovascular disease) Mother No problems noted. Social History Patient Tobacco Use Status: Former Tobacco user Review of Systems Const All systems reviewed & are unremarkable except as noted in HPI and below Reports no additional complaints Resp Reports no additional complaints GI Reports no additional complaints Reports as per HPI Musc Reports no additional complaints Physical Exam Telemedicine evaluation Appropriate responses Regular breathing rate and rhythm HEENT Head: Yes normal to inspection Ears: hearing grossly normal bilaterally Eyes General: appearance normal, both eyes and all related structures Neck Neck: Yes normal visual inspection Chest Chest palpation & inspection: normal inspection of the chest Resp Effort & Inspection: normal respiratory effort and able to speak in complete sentences Telehealth Telehealth Location of provider rendering services: practice address Location of patient: address on file Patient Identification confirmed using: Name, : Yes Telehealth method: voice only Patient verbally consented to treatment: Yes Patient verbally consented to billing insurance company: Yes Patient informed of any privacy concerns related to visit: Yes Assessment & Plan Assessment & Plan (1) Hypotonic neurogenic bladder: Code(s): N31.9 - Neuromuscular dysfunction of bladder, unspecified Category: Medical Plan Six-month follow-up Medications: New ascorbic acid (vitamin C) 1 g PO DAILY 90 days 90 tabs 1RF N31.9 - Neuromuscular dysfunction of bladder, unspecified, N39.0 - Urinary tract infection, site not specified methenamine hippurate 1 g PO DAILY 90 days 90 tabs 1RF N31.9 - Neuromuscular dysfunction of bladder, unspecified, N39.0 - Urinary tract infection, site not specified Discontinued finasteride Discontinued Reason: Order 5 mg PO DAILY 90 days 90 tabs 1RF N13.8 - Other obstructive and reflux uropathy, N40.1 - Benign prostatic hyperplasia with lower urinary tract symptoms, R33.9 - Retention of urine, unspecified, R39.11 - Hesitancy of micturition doxazosin Discontinued Reason: Patient Completed Course 8 mg PO BEDTIME 90 days 90 tabs 3RF bethanechol chloride Discontinued Reason: Patient Completed Course 50 mg PO BID 30 days 60 tabs 1RF N39.0 - Urinary tract infection, site not specified, R39.11 - Hesitancy of micturition Patient Instructions: Imaging studies, laboratory and physical exam results were discussed and reviewed in detail. No major barriers to patient understanding were identified. An opportunity to ask questions regarding the treatment plan was provided. All questions were answered. The patient expressed understanding and agreement with the above treatment plan. The patient is aware they should contact our office by phone for worsening of their current condition or the appearance of new urologic symptoms. Compliance is encouraged with any medications and followup testing that is ordered. It is a privilege to participate in the urologic care of your patient. If you have any questions or concerns regarding treatment for the above conditions, or other urologic issues, please do not hesitate to contact me. The office telephone contact is [phone]. This note is constructed using voice recognition software. While every effort has been made to ensure accuracy business leader errors may have been included. Yours sincerely, Dr Efra Waite MD, [facility] - Urology Providers of Expert, Compassionate Care for the Genitourinary System Coding Level of Care Code Tele Est Pt Level 3 (88956) Diagnoses Hypotonic neurogenic bladder N31.9
--- OUTSIDE RECORDS SUMMARY | 2024-11-20 17:09 | XMS_ITS | Encounter Summary ---
Author Organization [facility] Address [address] [place] [address] Care Team Providers Care Emt Driver Name Role Phone Shelia Isaac NP Primary Care Provider [phone] Encounter Details Date Type Department Care Team Description 05/29/2023 Transfer Records Medical Records [address] [place] [address] Rashel Willis MD Social History Tobacco Use Types Packs/Day Years Used Date Smoking Tobacco: Former Cigarettes 2 Smokeless Tobacco: Never Alcohol Use Standard Drinks/Week Comments Not Currently 0 (1 standard drink = 0.6 oz pur e alcohol) Sex Assigned at Date Recorded Not on file COVID-19 Exposure Response Date Recorded In the last 10 days, have yo u been in contact with someone who was confirmed or suspected to have Coronavirus/COVID-19? No / Unsure 05/26/2023 8:15 AM EDT documented as of this encounter Plan of Treatment Not on file documented as of this encounter Visit Diagnoses Not on filedocumented in this encounter Care Teams Emt Driver Relationship Specialty Start Date End Date Shelia Isaac NP [address] [place] [address] PCP - General Nurse Practitioner Primary Care 05/08/23 documented as of this encounter
--- OUTSIDE RECORDS SUMMARY | 2024-11-20 17:09 | XMS_ITS | Referral Summary ---
Author Organization [facility] Address [address] [place] [address] Care Team Providers Care Bank Consultant Name Role Phone Renzo Medina Primary Care Provider [phone] Encounters Date Type Department Care Team Description 11/03/2024 Surprise Ride Message [facility] [address] [place] [address] Nancy Irwin DO Shipping And Receiving Specialist/ Neck Brace 10/30/2024 Refill [facility] 5th Floor [address] [place] [address] Luda Major NP 10/25/2024 Telephone [facility] [address] [place] [address] Nancy Irwin DO 10/18/2024 Telephone [facility] [address] [place] [address] Qualification Engineer: Kathleen Dubose, turf manager Follow-up 10/09/2024 Refill [facility] 5th Floor [address] [place] [address] Luda Major COST REPORT CLERK 09/18/2024 Surprise Ride Message [facility] [address] [place] [address] Qualification Engineer: Ramila C Guzzi Attila, Gabi, MS Rest of genetic testing-also normal 09/17/2024 Refill [facility] Floor [address] [place] [address] Luda Major NP 09/09/2024 myChart Message [facility] [address] [place] [id number] Qualification Engineer: Gabi Mendoza, MS FIrst part of genetic test results. 09/09/2024 Orders Only [facility] [address] [place] [id number] Qualification Engineer: Gabi Mendoza, 08/30/2024 10:00 AM EST Follow-Up [facility] [address] [place] [id number] Nancy Irwin DO ALS (amyotrophic lateral sclerosis) (HCC) (Primary Dx); Neck pain; Dysarthria; Weight loss 08/28/2024 Refill [facility] [address] [place] [address] [address] [place] [address] Luda Major NP from Last 3 Months Allergies Active Allergy Reactions Criticality Noted Date Comments Penicillins Rash 06/14/2024 Medications allopurinoL (ZYLOPRIM) 100 mg tablet Take 100 mg by mouth. 4 Active ALPRAZolam (XANAX) 0.25 mg tablet Take 0.25 mg by mouth 3 times a day as needed for anxiety or sleep. 4 Active busPIRone (BUSPAR) 5 mg tablet Take 5 mg by mouth 2 (two) times a day. 4 Active escitalopram (LEXAPRO) 20 mg tablet Take 20 mg by mouth once a day. 4 Active LaMICtal 150 mg tablet Take 150 mg by mouth once a day. 4 Active nortriptyline (PAMELOR) 50 mg capsule Take 50 mg by mouth nightly. 4 Active pyridoxine, vitamin B6, (B-6) 100 mg tablet Take 100 mg by mouth once a day. Active riluzole (RILUTEK) 50 mg tablet Take 50 mg by mouth every 12 hours. Active traMADoL (ULTRAM) 50 mg tablet TAKE 1/2 TO 1 TABLET BY MOUTH EVERY 8 HOURS NEEDED FOR PAIN 42 tablet 5 Active traMADoL (ULTRAM) 50 mg tablet TAKE 1/2 TO 1 TABLET(25 TO 50 MG) BY MOUTH EVERY 8 HOURS NEEDED FOR PAIN 42 tablet 4 10/30/19 25 Discontinued Social History Tobacco Use Types Packs/Day Years Used Date Smoking Tobacco: Never Assessed Sex and Gender Information Value Date Recorded Sex Assigned at Male 04/23/2024 2:43 PM EDT Legal Sex Male 10:52 AM EDT Gender Identity Male 04/23/2024 2:43 PM EDT Sexual Orientation Lesbian or Monk 06/16/2024 11 :41 AM EDT Last Filed Vital Signs Vital Sign Reading Time Taken Comments Blood Pressure 128/77 08/30/2024 10:06 AM EST Pulse 110 08/30/2024 10:06 AM EST Temperature 36.7 ??C (98.1 ??F) 08/30/2024 10:[address] Respiratory Rate 16 08/30/2024 10:06 AM EST Oxygen Saturation 95% 08/30/2024 10:06 AM EST Inhaled Oxygen Concentration - - Weight 55.3 kg (122 lb) 08/30/2024 10:06 AM EST Height 167.6 cm (5' 6 ) 08/30/2024 10:06 AM EST Body Mass Index 19.69 08/30/2024 10:06 AM EST Plan of Treatment Upcoming Encounters Date Type Department Care Team (Late st Contact Info) Description 12/06/2024 10:00 AM EST Follow-Up [facility] [address] [place] [id number] Nancy Irwin DO [address] [place] [id number] Procedures * Due to [place] state law, this organization might not be sharing negative HIV tests. Procedure Name Priority Date/Time Associated Diagnosis Comments GENETIC TEST, OUTSIDE LAB Routine 09/09/2024 12:18 PM EST CBC AUTO DIFFERENTIAL Routine 08/30/2024 11:47 AM EST ALS (amyotrophic lateral sclerosis) (HCC) COMPREHENSIVE METABOLIC PANEL Routine 08/30/2024 11:47 AM EST ALS (amyotrophic lateral sclerosis) (HCC) from Last 3 Months Results * Due to [place] state law, this organization might not be sharing negative HIV tests. * Genetic Test, Outside Lab (09/09/2024 12:18 PM EST) Gabi Aiken MS LAB BLOOD ORDERABLES Final Result * (ABNORMAL) CBC Auto Differential (08/30/2024 11:47 AM EST) WBC 7.1 3.8 - 10.8 10*3/uL 08/30/2024 12:21 PM EST [facility] RBC 4.71 4.20 - 5.80 10*6/uL 08/30/2024 12:21 PM EST [facility] Hemoglobin 13.9 13.2 - 17.1 g/dL 08/30/2024 12:21 PM EST [facility] Hematocrit 43.4 38.5 - 50.0 % 08/30/2024 12:21 PM EST [facility] MCV 92.1 80.0 - 100.0 fL 08/30/2024 12:21 PM EST [facility] MCH 29.5 27.0 - 33.0 pg 08/30/2024 12:21 PM EST [facility] MCHC 32.0 32.0 - 36.0 g/dL 08/30/2024 12:21 PM EST [facility] RDW 12.3 11.0 - 15.0 % 08/30/2024 12:21 PM EST [facility] Platelets 158 140 - 400 10*3/uL 08/30/2024 12:21 PM EST [facility] MPV 13.8(H) 7.5 - 12.5 fL 08/30/2024 12:21 PM EST [facility] Neutrophil % 77.2 % 08/30/2024 12:21 PM EST [facility] Immature Grans % 0.1 0.0 - 0.9 % 08/30/2024 12:21 PM EST [facility] Lymphocyte % 15.2 % 08/30/2024 12:21 PM EST [facility] Monocyte % 6.5 % 08/30/2024 12:21 PM EST [facility] Eosinophil % 0.6 % 08/30/2024 12:21 PM EST [facility] Basophil % 0.4 % 08/30/2024 12:21 PM EST [facility] Neutrophil # 5.45 1.50 - 7.80 10*3/uL 08/30/2024 12:21 PM EST [facility] Immature Grans # <0.03 <=0.03 10*3/uL 08/30/2024 12:21 PM EST [facility] Lymphocyte # 1.10 0.85 - 3.90 10*3/uL 08/30/2024 12:21 PM EST [facility] Monocyte # 0.50 0.20 - 0.95 10*3/uL 08/30/2024 12:21 PM EST [facility] Eosinophil # <0.03 0.02 - 0.50 10*3/uL 08/30/2024 12:21 PM EST [facility] Basophil # <0.03 0.00 - 0.20 10*3/uL 08/30/2024 12:21 PM EST [facility] nRBC % 0.0 /100 WBCs 08/30/2024 12:21 PM EST [facility] nRBC # <0.01 <0.01 10*3/uL 08/30/2024 12:21 PM EST [facility] Blood Structure of peripheral vein / Unknown Venipuncture / Unknown 08/30/2024 11:47 AM EST 08/30/2024 12:10 PM EST us Nancy Shaversurjit Irwin DO LAB BLOOD ORDERABLES Final Result [facility] [address] [place] [address], * (ABNORMAL) Comprehensive Metabolic Panel (08/30/2024 11:47 AM EST) NA 142 135 - 145 mmol/L 08/30/2024 12:52 PM EST [facility] K 4.5 3.5 - 5.3 mmol/L 08/30/2024 12:52 PM EST [facility] Cl 99 98 - 107 mmol/L 08/30/2024 12:52 PM EST [facility] CO2 32 22 - 32 mmol/L 08/30/2024 12:52 PM EST [facility] Anion Gap 11 5 - 15 08/30/2024 12:52 PM EST [facility] Glucose 93 65 - 99 mg/dL 08/30/2024 12:52 PM EST [facility] Creatinine 0.59(L) 0.60 - 1.30 mg/dL 08/30/2024 12:52 PM EST [facility] Calcium 9.9 8.6 - 10.5 mg/dL 08/30/2024 12:52 PM EST [facility] Total Protein 7.4 6.0 - 8.0 g/dL 08/30/2024 12:52 PM EST [facility] Albumin 4.5 3.5 - 5.2 g/dL 08/30/2024 12:52 PM EST [facility] Bilirubin, Total 0.8 0.2 - 1.2 mg/dL 08/30/2024 12:52 PM EST [facility] Alkaline Phosphatase 81 35 - 129 U/L 08/30/2024 12:52 PM EST [facility] AST 25 10 - 40 U/L 08/30/2024 12:52 PM EST [facility] ALT 24 10 - 40 U/L 08/30/2024 12:52 PM EST [facility] BUN 14 7 - 23 mg/dL 08/30/2024 12:52 PM [facility] eGFR >90 >=60 mL/min/1 .73m2 08/30/2024 12:52 PM EST [facility] Comment:The estimated glomer ular filtration rate (eGFR) is calculated using a new formula developed by the NKF-ASN task force to eliminate race-based correction factors. The new formula uses serum/plasma creatinine, age, and gender to determine eGFR. A value below 60mls/min might indicate kidney disease and will be flagged. For additional information, see Ioana et al, Am J Kidney Dis. 2021;79(2):268- 288, A Unifying Approach for GFR estimation: Recommendations of the NKF-ASN Task Force on Reassessing the Inclusion of Race in Diagnosing Kidney Disease . Globulin, Total 2.9 2.1 - 4.2 g/dL 08/30/2024 12:52 PM EST [facility] A/G Ratio 1.6 1.5 - 3.0 08/30/2024 12:52 PM EST [facility]ERR[facility] TechnologyDC [facility] Blood Structure of peripheral vein / Unknown Venipuncture / Unknown 08/30/2024 11:47 AM EST 08/30/2024 12:10 PM EST Nancy Irwin DO LAB BLOOD ORDERABLES Final Result [facility] [address] [place] [address], from Last 3 Months Insurance [employer] PPO/EPO/IND MEDICARE CIGNA PPO/EPO/IND Care Teams Bank Consultant Relationship Specialty Start Date End Date Renzo Medina PA [address] [facility] [place] [address] PCP - General 04/23/24
--- OUTSIDE RECORDS SUMMARY | 2024-11-20 17:09 | XMS_ITS | Encounter Summary ---
Author Organization [facility] Address [address] [place] [address] Care Team Providers Care Shipsmith Name Role Phone Shelia Isaac NP Primary Care Provider [phone] Encounter Details Date Type Department Care Team Description 07/27/2023 Orders Only Medical Records [address] [place] [address] Abstract, Provider Social History Tobacco Use Types Packs/Day Years [...] suspected to have Coronavirus/COVID-19? No / Unsure 06/30/2023 3:48 PM EDT documented as of this encounter Plan of Treatment Not on file documented as of this encounter Procedures Procedure Name Priority Date/Time Associated Diagnosis Comments OUTSIDE BARIUM SWALLOW Routine 07/25/2023 documented in this encounter Results * OUTSIDE BARIUM SWALLOW (07/25/2023) Madyson Bliss MD RADIOLOGY documented in this encounter Visit Diagnoses Not on filedocumented in this encounter Care Teams Shipsmith Relationship Specialty Start Date End Date Shelia Isaac NP [address] [place] [address] PCP - General Nurse Practitioner Primary Care 05/08/23 documented as of this encounter
--- OUTSIDE RECORDS SUMMARY | 2024-11-20 17:09 | XMS_ITS | Clinical Summary ---
Author Organization [facility] it Address [address] [place] [address] Care Team Providers Care Reading Efficiency Course Director Name Role Phone Shelia Isaac NP Primary Care Provider [phone] Social History Tobacco Use Types Packs/Day Years Used Date Smoking Tobacco: Former Smokeless Tobacco: Never Alcohol Use Standard Drinks/Week Comments Not Currently 0 (1 standard drink = 0.6 oz pur e alcohol) Sex and Gender Information Value Date Recorded Sex Assigned at Not on file Gender Identity Not on file Sexual Orientation Not on file Obstetrics History Last Filed Vital Signs Vital Sign Reading Time Taken Comments Blood Pressure 136/85 06/30/2023 4:28 PM EDT A Pulse 87 06/30/2023 4:28 PM EDT Temperature - - Respiratory Rate - - Oxygen Saturation - - Inhaled Oxygen Concentration - - Weight 83.3 kg (183 lb 11.2 oz) 06/30/2023 4:28 PM EDT Height 170.2 cm (5' 7 ) 06/30/2023 4:28 PM EDT Body Mass Index 28.77 06/30/2023 4:28 PM EDT Plan of Treatment Health Maintenance Due Date Last Done Comments DTaP,Tdap,and Td Vaccines (1 - Tdap) 1982 Zoster Vaccines (1 of 2) 2013 Cholesterol Screening (Lipid Panel) 09/25/2022 Colorectal Cancer Screening: Colonoscopy 09/25/2022 Depression Screening 09/25/2022 HIV Screening 09/25/2022 Hepatitis C Screening 09/25/2022 Social Influencers of Health Screening 09/25/2022 COVID-19 Vaccine ( season) 2024 03/19/2022, 09/20/2021, 02/13/2021, Additional history exists Influenza Vaccine (#1) 2024 3, 07/28/2022, 08/03/2021, Additional history exists RSV Immunization Patients 60+ Years Old (1 - 1-dose 75+ series) 2038 HIB Vaccines Aged Out No longer eligi ble based on patient's age to complete this topic HPV Vaccines Aged Out No longer eligi ble based on patient's age to complete this topic Hepatitis A Vaccines Aged Out No long er eligible based on patient's age to complete this topic Hepatitis B Vaccines Aged Out No long er eligible based on patient's age to complete this topic IPV Vaccines Aged Out No longer eligi ble based on patient's age to complete this topic MMR Vaccines Aged Out No longer eligi ble based on patient's age to complete this topic Meningococcal ACWY Vaccine Aged Out N o longer eligible based on patient's age to complete this topic Pneumococcal Vaccine: Pediatrics (0 to 5 Years) and At-Risk Patients (6 to 64 Years) Aged Out No longer eligible based on patient's age to complete this topic RSV Immunization Patients Under 20 months Aged Out No longer eligible based on patient's age to complete this topic Varicella Vaccines Aged Out No longer eligible based on patient's age to complete this topic Advance Directives Documents on File Type Date Recorded Patient Director Account Management Expl anation Health Care Decision (hx) 01/23/2018 AD BOLIVAR DIRECTIVE Health Care Decision (hx) 01/23/2018 AD BOLIVAR DIRECTIVE Health Care Decision (hx) 01/23/2018 AD BOLIVAR DIRECTIVE Health Care Decision (hx) 01/23/2018 AD BOLIVAR DIRECTIVE Health Care Decision (hx) 01/23/2018 AD BOLIVAR DIRECTIVE Health Care Decision (hx) 01/23/2018 AD BOLIVAR DIRECTIVE Health Care Decision (hx) 01/23/2018 AD BOLIVAR DIRECTIVE Health Care Decision (hx) 01/23/2018 AD BOLIVAR DIRECTIVE Health Care Decision (hx) 01/23/2018 AD BOLIVAR DIRECTIVE Health Care Decision (hx) 01/23/2018 AD BOLIVAR DIRECTIVE Health Care Decision (hx) 01/23/2018 AD BOLIVAR DIRECTIVE Health Care Decision (hx) 01/23/2018 AD BOLIVAR DIRECTIVE Care Teams Reading Efficiency Course Director Relationship Specialty Start Date End Date Shelia Isaac NP [address] [place] [phone] PCP - General 05/08/23
--- OUTSIDE RECORDS SUMMARY | 2024-11-20 17:10 | XMS_ITS | Clinical Summary ---
Author Organization [facility] Address [address] [place] [address] Care Team Providers Care Mechanical Applications Engineer Name Role Phone Renzo Medina Primary Care Provider [phone] Allergies Active Allergy Reactions Criticality Noted Date [...] PAIN 42 tablet 4 10/30/19 25 Discontinued Encounters Date Type Department Care Team Description 11/03/2024 myChart Message [facility] [address] [place] [address] Nancy Irwin DO Unit Aide/ Neck Brace 10/30/2024 Refill [facility] 5th Floor [address] [place] [address] Luda Major, ACCOUNTANT SUPERVISOR 10/25/2024 Telephone [facility] [address] [place] [address] Nancy Irwin DO 10/18/2024 Telephone [facility] [address] [place] [address] Cutter Operator: Kathleen Dubose, corporate counsel Follow-up 10/09/2024 Refill [facility] 5th Floor [address] [place] [address] Luda Major, ACCOUNTANT SUPERVISOR 09/18/2024 [employer] Message [facility] [address] [place] [address] Cutter Operator: Gabi Mendoza, MS Rest of genetic testing-also normal 09/17/2024 Refill [facility] 5th Floor [address] [place] [address] Luda Major, ACCOUNTANT SUPERVISOR 09/09/2024 CHROMAomharRudder Message [facility] [address] [place] [address] Cutter Operator: Gabi Mendoza, MS FIrst part of genetic test results. 09/09/2024 Orders Only [facility] [address] [place] [address] Cutter Operator: Gabi Mendoza, MS 08/30/2024 10:00 AM EST Follow-Up [facility] [address] [place] [address] Nancy Irwin DO ALS (amyotrophic lateral sclerosis) (HCC) (Primary Dx); Neck pain; Dysarthria; Weight loss 08/28/2024 Refill [facility] 5th Floor [address] [place] [address] Luda Major NP from Last 3 Months Family History Medical History Relation Name Comments Mitral valve prolapse Brother 2 Myocardial Infarction Father Breast cancer Mother Autism Other Relation Name Status Comments Brother 1 Alive Brother 2 (Age 47) Brother 3 Alive Father (Age 56) Mother Alive Nephew Alive Niece Alive Other Alive Social History Tobacco Use Types Packs/Day Years [...] Info) Description 12/06/2024 10:00 AM EST Follow-Up [facility] [address] [place] [address] Nancy Irwin, DO [address] [place] [address] Health Maintenance Due Date Last Done Comments Cologuard 1963 Colon Cancer Screening 1963 Colonoscopy 1963 Controlled Substance Agreement 1963 FOBT / Fit Test 1963 HIV Screening 1963 Hepatitis C Screening 1963 Sigmoidoscopy 1963 Zoster Vaccines (1 of 2) 2013 DTaP,Tdap,and Td Vaccines (1 - Tdap) 08/08/2024 08/07/2024 Alcohol/Substance Use Screening 10/23/2024 Depression Screening and Follow-Up 10/23/2024 Social Drivers of Health Annual Screening 10/23/2024 RSV Vaccine (60+ years old and patients) (1 - 1-dose 75+ series) 2038 COVID-19 Vaccine Completed 07/25/2024, 03/2022, 03/19/2022, Additional history exists Influenza Vaccine Completed 07/25/2024, , 07/28/2022, Additional history exists Pneumococcal Vaccine: Pediatric (0-5 Years) and At-Risk Patients (6-64 Years) Aged Out 07/25/2024 No longer eligible based on patient's age to complete this topic Hepatitis B Vaccines Aged Out No long er eligible based on patient's age to complete this topic Procedures * Due to [place] law, this organization might not be sharing negative HIV tests. Procedure Name Priority Date/Time Associated Diagnosis Comments GENETIC TEST, OUTSIDE LAB Routine 09/09/2024 12:18 PM EST CBC AUTO DIFFERENTIAL Routine 08/30/2024 11:47 AM EST ALS (amyotrophic lateral sclerosis) (HCC) COMPREHENSIVE METABOLIC PANEL Routine 08/30/2024 11:47 AM EST ALS (amyotrophic lateral sclerosis) (HCC) from Last 3 Months Results * Due to [place] law, this organization might not be sharing [...] - 400 10*3/uL 08/30/2024 12:21 PM EST [facility] MPV 13.8(H) 7.5 - 12.5 fL 08/30/2024 12:21 PM EST [facility] Neutrophil % 77.2 % 08/30/2024 12:21 PM EST [facility] Immature Grans % 0.1 0.0 - 0.9 % 08/30/2024 12:21 PM EST [facility] Lymphocyte % 15.2 % 08/30/2024 12:21 PM EST [facility] Monocyte % 6.5 % 08/30/2024 12:21 PM EST [facility] Eosinophil % 0.6 % 08/30/2024 12:21 PM EST [facility] Basophil % 0.4 % 08/30/2024 12:21 PM EST [facility] Neutrophil # 5.45 1.50 - 7.80 10*3/uL 08/30/2024 12:21 PM EST [facility] Immature Grans # <0.03 <=0.03 10*3/uL 08/30/2024 12:21 PM EST [facility] Lymphocyte # 1.10 0.85 - 3.90 10*3/uL 08/30/2024 12:21 PM EST [facility] Monocyte # 0.50 0.20 - 0.95 10*3/uL 08/30/2024 12:21 PM EST [facility] Eosinophil # <0.03 0.02 - 0.50 10*3/uL 08/30/2024 12:21 PM EST [facility] Basophil # <0.03 0.00 - 0.20 10*3/uL 08/30/2024 12:21 PM EST [facility] nRBC % 0.0 /100 WBCs 08/30/2024 12:21 PM EST [facility] nRBC # <0.01 <0.01 10*3/uL 08/30/2024 12:21 PM EST [facility] Blood Structure of peripheral vein / Unknown Venipuncture / Unknown 08/30/2024 11:47 AM EST 08/30/2024 12:10 PM EST us Nancy Irwin DO LAB BLOOD ORDERABLES Final Result [facility] [address] [place] [address], * (ABNORMAL) Comprehensive Metabolic Panel (08/30/2024 11:47 AM EST) NA 142 135 - 145 mmol/L 08/30/2024 12:52 PM EST [facility] K 4.5 3.5 - 5.3 mmol/L 08/30/2024 12:52 PM EST [facility] Cl 99 98 - 107 mmol/L 08/30/2024 12:52 PM EST [facility] CO2 32 22 - 32 mmol/L 08/30/2024 12:52 PM EST [facility] Anion Gap 11 5 - 15 08/30/2024 12:52 PM EST [facility] Glucose 93 65 - 99 mg/dL 08/30/2024 12:52 PM EST [facility] Creatinine 0.59(L) 0.60 - 1.30 mg/dL 08/30/2024 12:52 PM EST [facility] Calcium 9.9 8.6 - 10.5 mg/dL 08/30/2024 12:52 PM EST [facility] Total Protein 7.4 6.0 - 8.0 g/dL 08/30/2024 12:52 PM EST [facility] Albumin 4.5 3.5 - 5.2 g/dL 08/30/2024 12:52 PM EST [facility] Bilirubin, Total 0.8 0.2 - 1.2 mg/dL 08/30/2024 12:52 PM EST [facility] Alkaline Phosphatase 81 35 - 129 U/L 08/30/2024 12:52 PM EST [facility] AST 25 10 - 40 U/L 08/30/2024 12:52 PM EST [facility] ALT 24 10 - 40 U/L 08/30/2024 12:52 PM EST [facility] BUN 14 7 - 23 mg/dL 08/30/2024 12:52 PM EST [facility] eGFR >90 >=60 mL/min/1 .73m2 08/30/2024 12:52 PM EST [facility] Comment:The estimated glomer ular filtration rate (eGFR) is calculated using a new formula developed by the NKF-ASN task force to eliminate race-based correction factors. The new formula uses serum/plasma creatinine, age, and gender to determine eGFR. A value below 60mls/min might indicate kidney disease and will be flagged. For additional information, see Triplett et al, Am J Kidney Dis. 2021;79(2):268- 288, A Unifying Approach for GFR estimation: Recommendations of the NKF-ASN Task Force on Reassessing the Inclusion of Race in Diagnosing Kidney Disease . Globulin, Total 2.9 2.1 - 4.2 g/dL 08/30/2024 12:52 PM EST [facility] A/G Ratio 1.6 1.5 - 3.0 08/30/2024 12:52 PM EST [facility] Blood Structure of peripheral vein / Unknown Venipuncture / Unknown 08/30/2024 11:47 AM EST 08/30/2024 12:10 PM EST us Nancy Irwin DO LAB BLOOD ORDERABLES Final Result [facility] [address] [place] [address], from Last 3 Months Insurance [employer] PPO/EPO/IND MEDICARE CIGNA PPO/EPO/IND Care Teams Mechanical Applications Engineer Relationship Specialty Start Date End Date Renzo Medina PA [address] [place] [address] PCP - General 04/23/24
--- OUTSIDE RECORDS SUMMARY | 2024-11-20 17:10 | XMS_ITS | Encounter Summary ---
Author Organization [facility] Address [address] [place] [address] Care Team Providers Care Web Programmer Name Role Phone Renzo Medina Primary Care Provider [phone] Encounter Details Date Type Department Care Team (Late st Contact Info) Description 11/03/2024 myChart Message [facility] [address] [place] [id number] Nancy Irwin DO [address] [place] [address] Pipe Chipper/ Neck Brace Social History Tobacco Use Types Packs/Day Years Used Date Smoking Tobacco: Never Assessed Sex and Gender Information Value Date Recorded Sex Assigned at Male 04/23/2024 2:43 PM EDT Legal Sex Male 10:52 AM EDT Gender Identity Male 04/23/2024 2:43 PM EDT Sexual Orientation Lesbian or Monk 06/16/2024 11 :41 AM EDT documented as of this encounter Plan of Treatment Upcoming Encounters Date Type Department Care Team (Late st Contact Info) Description 12/06/2024 10:00 AM EST Follow-Up [facility] [address] [place] [id number] Nancy Irwin DO [address] [place] [address] documented as of this encounter Visit Diagnoses Not on filedocumented in this encounter Care Teams Web Programmer Relationship Specialty Start Date End Date Renzo Medina PA [address] [facility] [place] [place] [address] PCP - General 04/23/24 documented as of this encounter
--- OUTSIDE RECORDS SUMMARY | 2024-11-20 17:10 | XMS_ITS | Encounter Summary ---
Author Organization [facility] Address [address] [place] [address] Care Team Providers Care Systems Support Specialist Name Role Phone Renzo Medina Primary Care Provider [phone] Reason for Visit * Reason Comments Med Refill Encounter Details Date Type Department Care Team (Late st Contact Info) Description 10/30/2024 Refill [facility] 5th Floor [address] [place] [address] Luda Major NP [address] [place] [address] Social History Tobacco Use Types Packs/Day Years [...] Info) Description 12/06/2024 10:00 AM EST Follow-Up [facility] [address] [place], [place] [id number] Nancy Irwin DO [address] [place] [address] documented as of this encounter Visit Diagnoses Not on filedocumented in this encounter Care Teams Systems Support Specialist Relationship Specialty Start Date End Date Renzo Medina PA [address] [place] [address] PCP - General 04/23/24 documented as of this encounter
--- OUTSIDE RECORDS SUMMARY | 2024-11-20 17:10 | XMS_ITS | Encounter Summary ---
Author Organization [facility] Address [address] [place] [address] Care Team Providers Care Frozen Food Selector Name Role Phone Renzo Mednia Primary Care Provider [phone] Encounter Details Date Type Department Care Team (Late st Contact Info) Description 10/25/2024 Telephone [facility] [address] [place], [place] [phone] Nancy Irwin, [address] [place] [address] Social History Tobacco Use Types Packs/Day Years Used Date Smoking Tobacco: Never Assessed Sex and Gender Information Value Date Recorded Sex Assigned at Male 04/23/2024 2:43 PM EDT Legal Sex Male 10:52 AM EDT Gender Identity Male 04/23/2024 2:43 PM EDT Sexual Orientation Lesbian or Monk 06/16/2024 11 :41 AM EDT documented as of this encounter Miscellaneous Notes * Telephone Encounter - Cheryl Sun - 11/06/2024 11:05 AM EST Libby faxed and spoke to Tania * Telephone Encounter - Marii Lockett - 10/25/2024 1:56 PM EST [facility] for Raghu Dawkins. Yudy is from [facility] Yudy documented in this encounter Plan of Treatment Upcoming Encounters Date Type Department Care Team (Late st Contact Info) Description 12/06/2024 10:00 AM EST Follow-Up [facility] [address] [place], [place] [phone] Nacny Irwin DO [address] [place] [address] documented as of this encounter Visit Diagnoses Not on filedocumented in this encounter Care Teams Frozen Food Selector Relationship Specialty Start Date End Date Renzo Medina PA [address] [place] [address] PCP - General 04/23/24 documented as of this encounter
== END 2024-11-20 15:39 | disposition home or self-care (01) ==
PROVIDERS: PCP Internal Medicine; Visit Provider Urology
DX: N31.9 Neuromuscular dysfunction of bladder, unspecified (principal)
CPT/HCPCS: 98016